=== PATIENT | male | born 1960 | race Caucasian/White ===

== ENCOUNTER 2019-10-23 06:53 | Outpatient (CLI) | payer BC, OTHER ==
[2019-10-23 16:55] LABS: #Eosinphils 0.2 thou/uL (0.0-0.7); #Lymphocytes 1.6 thou/uL (1.20-3.40); #Monocytes 0.4 thou/uL (0.11-0.59); #Neutrophils 2.8 thou/uL (1.40-6.50); %Basophils 0.6 % (0.0-1.0); %Eosinophils 3.5 % (0.0-10.0); %Lymphocytes 31.8 % (21.0-51.0); %Monocytes 8.6 % (0.0-10.0); %Neutrophils 55.5 % (42.0-75.0); Hemoglobin 15.3 g/dL (14.0-18.0); Mean Corpuscular HGB CONC 33.5 g/dL (32.0-36.0); Mean Corpuscular Hemoglobin 30.5 pg (27.0-31.0); Mean Platelet Volume 9.2 fL (7.4-10.4); Platelet Count 181 thou/uL (130-400); RBC Distribution Width 12.5 % (11.5-14.5); White Blood Cell (WBC) Count 5.1 thou/uL (4.8-10.8)
[2019-10-23 17:13] LABS: Anion Gap 13 mmol/L (10-20); BUN (Urea Nitrogen) 17 mg/dL (8.4-25.7); Calc. Creatinine Clearance 0 mL/min (70-130); Calcium 9.3 mg/dL (7.8-10.44); Carbon Dioxide 23 mmol/L (23-31); Chloride 106 mmol/L (98-107); Estimated GFR-MDRD 66; Glucose 102 mg/dL (80-115); Potassium 4.3 mmol/L (3.5-5.1); Sodium 138 mmol/L (136-145)
[2019-10-24 17:22] LABS: SARS-CoV-2 MS2 Positive; SARS-CoV-2 N Gene Negative; SARS-CoV-2 S Gene Negative; SARS-CoV-2 orf1ab Negative
== END 2019-10-23 06:54 | disposition home or self-care (01) ==
LOC: LABBT 06:53
PROVIDERS: ATTEND Orthopaedic Surgery
DX: Z01.818 Encounter for other preprocedural examination (principal); Z11.59 Encounter for screening for other viral diseases; S83.232A Complex tear of medial meniscus, current injury, left knee, initial encounter
CPT/HCPCS: 80048; 85025; 87635; 93005; 93010; U0003

== ENCOUNTER 2019-10-29 11:39 | Day surgery (SDC) | payer BC ==
[2019-10-23 14:13] VITALS: BMI 33.7
--- NOTE | 2019-10-27 12:22 | HP ---
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 Symptoms now interfering with day-to-day activities. PAST MEDICAL HISTORY: The patient is otherwise in good health. He has no major medical problems. MEDICATIONS: He is taking low-dose aspirin, Lipitor, and meloxicam. ALLERGIES: HE HAS NO KNOWN ALLERGIES. FAMILY HISTORY: Otherwise unremarkable. SOCIAL HISTORY: Otherwise unremarkable. REVIEW OF SYSTEMS: Otherwise unremarkable. PHYSICAL EXAMINATION: Reveals no effusion. There is mild varus deformity. There is tenderness of the medial joint line. There is no instability. Range of motion is 0 to 135 degrees. There is a slight right antalgic gait. Neurovascular exam is intact. DIAGNOSTIC STUDIES: X-rays of the left knee reveal mild to moderate degenerative narrowing, which has progressed from previous x-rays, but there is still joint space remaining. MRI scan performed at the [facility] on 01/09/2019 reveals a complex tear of the medial meniscus and some degenerative changes. IMPRESSION: Internal derangement of left knee with medial meniscal tear, possible component of degenerative arthritis. PLAN: Arthroscopy of left knee with partial medial meniscectomy and/or debridement and shaving. The nature of the surgery, length of recovery, potential complications such as infection, loss of motion, incomplete relief, thromboembolic phenomena, neurovascular injury, post traumatic degenerative arthritis with possible ultimate need for knee replacement, recurrent tear, need for additional treatment and repeat surgery have been discussed in detail. Job ID: [id number]
[2019-10-29] MEDS ORDERED: EPHEDRINE 25 MG/5 ML SYRINGE ONE (12:37)
[2019-10-29] MEDS ORDERED: Ketorolac Tromethamine 30 MG/ML VIAL ONE (12:37)
[2019-10-29] MEDS ORDERED: Lidocaine 1% PF 5 ML VIAL ONE (12:37)
[2019-10-29] MEDS ORDERED: Ondansetron PF 4 MG/2 ML Vial ONE (12:37)
[2019-10-29] MEDS ORDERED: PROPOFOL 200 MG/20 ML VIAL ONE (12:37)
[2019-10-29] MEDS ORDERED: Fentanyl 100 MCG/2 ML VIAL ONE (13:25)
[2019-10-29] MEDS ORDERED: HYDROmorphone 0.5 MG/0.5 ML SYRINGE ONE (13:25)
[2019-10-29] MEDS ORDERED: Lidocaine 1% w/Epinephrine 1:100K 20 ML VIAL ONE (13:34)
[2019-10-29] MEDS ORDERED: Bupivacaine PF 0.5% 30 ML VIAL ONE (13:34)
--- NOTE | 2019-10-29 19:14 | OP ---
DATE OF PROCEDURE: 10/29/2019 ANESTHESIA: General. PREOPERATIVE DIAGNOSIS: Medial meniscal tear and degenerative joint disease, left knee. POSTOPERATIVE DIAGNOSIS: Medial meniscal tear and degenerative joint disease, left knee. PROCEDURES PERFORMED: Arthroscopy of left knee with partial medial meniscectomy and debridement, shaving of medial femoral condyle and medial tibial plateau. OPERATIVE FINDINGS: Examination under anesthesia revealed it to be stable. At arthroscopy, there was moderate effusion. 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 No areas needing shaving. There was a complex tear of the posterior horn of the medial meniscus and grade 2, 3, and early grade 4 changes of the medial femoral condyle and medial tibial plateau with small areas of exposed bone measuring approximately 1 x 2 cm. ACL was intact. Lateral compartment was essentially normal. Lateral meniscus was intact. DESCRIPTION OF PROCEDURE: After satisfactory anesthesia was induced in supine position, the patient was placed in a leg [place] and prepped and draped in routine manner. The left leg was elevated and exsanguinated with an Esmarch bandage and the tourniquet inflated to 350 mmHg. Sarah arthroscope was introduced anterolateral portal, probed through the anteromedial portal, and inflow and outflow accomplished through the scope using a [employer] arthroscopy pump. Arthroscopy was carried out and the above findings were noted. All findings were documented with video printer and hard copies were made. The medial meniscus was debrided with use of motorized shaver and basket forceps as was the medial femoral condyle and medial tibial plateau of all fronds of fibrillated articular surface. There was a small remaining rim of 2 to 3 mm, which was probed and found to be stable. There was still some slight horizontal cleavage tearing within the posterior horn of medial meniscus and I elected to leave this alone since it was stable. The scope was then introduced into the anteromedial portal. All compartments were visualized. No additional pathology found. The knee was copiously irrigated through the scope. All instruments were then withdrawn. A mixture of 30 mL of 0.5% plain Marcaine and 20 mL of 1% lidocaine with epinephrine was prepared. 30 mL of this mixture was placed into the knee joint and additional 10 mL injected at each portal site. The portal sites were closed with 3-0 nylon and a sterile bulky compressive dressing was applied. The tourniquet deflated after 24 minutes. The foot promptly pinked up. The patient was awakened, taken to occur, awakened, taken to the recovery room in stable condition. There were no apparent intraoperative complications. The estimated blood loss was negligible. The patient will be discharged home in satisfactory condition. Instructed on ice elevation, use of crutches, and home exercise program with Physical Therapy Department. He was given written wound care instructions and has [place] 7.5 at home for pain. He will be rechecked in my office in 10 to 14 days or sooner if there are any problems prior to that time. Job ID: [id number]
== END 2019-10-29 17:20 | disposition home or self-care (01) ==
LOC: SDC 11:39
PROVIDERS: ATTEND Orthopaedic Surgery
PROC: 0SBD4ZZ Excision of Left Knee Joint, Percutaneous Endoscopic Approach (ICD-10-PCS; principal; 2019-10-29)
DX: S83.232A Complex tear of medial meniscus, current injury, left knee, initial encounter (principal); M17.12 Unilateral primary osteoarthritis, left knee; M22.42 Chondromalacia patellae, left knee; M21.162 Varus deformity, not elsewhere classified, left knee; E11.9 Type 2 diabetes mellitus without complications; F10.11 Alcohol abuse, in remission; Z79.82 Long term (current) use of aspirin; Z79.84 Long term (current) use of oral hypoglycemic drugs; Z79.899 Other long term (current) drug therapy
CPT/HCPCS: J0690; J1170; J1885; J2001; J2405; J2704; J3010; S0020